=== PATIENT | male | born 1960 | race American Indian/Alaskan Native ===

== ENCOUNTER 2017-05-28 07:54 | Emergency (ER) | payer OTHER ==
[2017-05-28] MEDS ORDERED: ASPIRIN PO ONE (08:18)
[2017-05-28 09:34] LABS: Basophils % (Auto) 0.3 % (0.0-1.8); Eosinophils # (Auto) 0.1 K/mm3 (0.0-0.4); Eosinophils % (Auto) 0.9 % (0.0-4.3); Hematocrit 43.3 % (35.5-45.6); Hemoglobin 13.6 gm/dl (11.8-15.2); Lymphocytes # (Auto) 1.4 K/mm3 (1.2-5.4); Lymphocytes % (Auto) 21.6 % (13.4-35.0); Mean Corpuscular HGB Conc 32 % (32-34); Mean Corpuscular Hemoglobin 28 pg (28-32); Mean Corpuscular Volume 89 fl (84-94); Monocytes # (Auto) 0.6 K/mm3 (0.0-0.8); Monocytes % (Auto) 8.7 % (0.0-7.3); Platelet Count 281 K/mm3 (140-440); Red Blood Count 4.88 M/mm3 (3.65-5.03); Red Cell Distribution Width 14.3 % (13.2-15.2)
[2017-05-28 09:38] LABS: BUN/Creatinine Ratio TNR; Blood Urea Nitrogen TNR mg/dL (9-20); Calcium TNR mg/dL (8.4-10.2)
[2017-05-28 09:39] LABS: Hemolysis Index TNR
[2017-05-28] MEDS ORDERED: TYLENOL PO ONE (11:46)
--- NOTE | 2017-05-28 11:57 | XRay Report ---
ROUTINE CHEST, TWO VIEWS: HISTORY: chest pain. The trachea, heart, mediastinal contour, lung disla and bony thorax are unremarkable. IMPRESSION: Unremarkable chest x-ray.
[2017-05-28 12:00] LABS: BUN/Creatinine Ratio 17; Blood Urea Nitrogen 15 mg/dL (9-20); Calcium 8.8 mg/dL (8.4-10.2); Hemolysis Index 4
[2017-05-28] MEDS ORDERED: NORVASC PO ONE (12:32)
--- NOTE | 2017-05-28 13:19 | Emergency Department Report ---
ED Chest Pain HPI - General Chief Complaint: Chest Pain Stated Complaint: CP Time Seen by Provider: 05/28/17 11:28 Source: patient Mode of arrival: Ambulatory Limitations: No Limitations - History of Present Illness Initial Comments: 56-year-old male with no subcutaneous past medical history presents complaining of intermittent chest pain and left-sided neck pain since last night. Pain is Described as a pressure that he only feels it moving in certain positions. Pain is worse with bending forward and turning his head from [id number]. Patient's pain is rated 8/10 in intensity. Pain started last night and patient was able to go to sleep without any issues. He woke up this morning and pain worsened again while bending over to tie his shoe. He complains of some mild lightheadedness with walking but denies nausea, vomiting, diaphoresis, or shortness of breath. Severity scale (0 -10): 6 - Related Data Previous Rx's Medication Instructions Recorded Last Taken Type Ibuprofen [Motrin] 800 mg PO Q8HR PRN #30 tablet 05/28/17 Unknown Rx amLODIPine [Norvasc] 5 mg PO DAILY #30 tab 05/28/17 Unknown Rx Allergies Allergy/AdvReac Type Severity Reaction Status Date / Time No Known Allergies Allergy Unverified 05/28/17 08:14 Heart Score - HEART Score History: Slightly suspicious EKG: Non-specific Age: 45-65 Risk factors: 1-2 risk factors Troponin: < normal limit HEART Score: 3 ED Review of Systems ROS: Stated complaint: CP Other details as noted in HPI Comment: All other systems reviewed and negative Other: Constitutional: No fevers chills Eyes: No eye pain visual changes ENT: No ear pain or throat pain Neck: as per hpi Respiratory: Denies cough wheezing shortness of breath Cardiovascular: Denies palpitations, syncope GI: Denies abdominal pain, nausea, vomiting, diarrhea : Denies dysuria Musculoskeletal: Denies back pain Skin: Denies rash, lesions, erythema Neurologic: Denies headache, numbness, weakness Psychiatric: Denies suicidal ideation, hallucinations ED Past Medical Hx - Past Medical History Previous Medical History?: No - Surgical History Past Surgical History?: Yes Additional Surgical History: Hari hand surgery, Left foot surgery - Social History Smoking Status: Never Smoker Substance Use Type: Alcohol, Non Opiate Pain - Medications Home Medications: Home Medications Medication Instructions Recorded Confirmed Last Taken Type Ibuprofen [Motrin] 800 mg PO Q8HR PRN #30 tablet 05/28/17 Unknown Rx amLODIPine [Norvasc] 5 mg PO DAILY #30 tab 05/28/17 Unknown Rx ED Physical Exam - General Limitations: No Limitations - Other Other exam information: General: No limitations, patient is alert in no acute distress Head exam: Atraumatic, normocephalic Eyes exam: Normal appearance, pupils equal reactive to light, extraocular movements intact ENT: Moist mucous membrane, normal oropharynx Neck exam: Normal inspection, full range of motion, no meningismus, tenderness to left-sided neck base at insertion of trapezius muscle downward. Reproducible with head movement Respiratory exam: Clear to auscultation bilateral, no wheezes, rales, crackles. Chest wall nontender quadrant reproducible chest tenderness with leaning forward Cardiovascular: Normal rate and rhythm Abdomen: Soft, nondistended, and nontender, with normal bowel sounds, no rebound, or guarding Extremity: Full range of motion normal inspection no deformity, no calf tenderness or edema Back: Normal Inspection, full range of motion, no tenderness Neurologic: Alert, oriented x3, cranial nerves intact, no motor or sensory deficit Psychiatric: normal affect, normal mood Skin: Warm, dry, intact ED Course Vital Signs 05/28/17 05/28/17 08:14 11:37 Temperature 97.4 F L Pulse Rate 76 72 Respiratory 18 16 Rate Blood Pressure 185/115 Blood Pressure 135/106 [Left] O2 Sat by Pulse 97 96 Oximetry - Reevaluation(s) Reevaluation #1: 05/28/17 13:19 bp improved with bp meds but still elevated. asa and tylenol given in ed pain only with movement - Consultations Consultation #1: 05/28/17 lath hand with [facility] (community organization aide) Dr Albarado and Shilpa Delarosa came to evaluate pt. Agree pt can f/u tomorrow for outpt stress. rec norvasc for bp. Unfortunately there office does not accept the patient's insurance and therefore they discussed case with Dr. Elaine. Arrangements had been made for an appointment tomorrow with Dr. Elaine's office for outpatient stress testing. NAVEED score - Naveed Score Age > 65: (0) No Aspirin use within the Past 7 Days: (0) No 3 or more CAD Risk Factors: (0) No 2 or more Angina events in past 24 hrs: (1) Yes Known CAD with more than 50% Stenosis: (0) No Elevated Cardiac Markers: (0) No ST Deviation Greater than 0.5mm: (0) No NAVEED Score: 1 ED Medical Decision Making - Lab Data Result diagrams: 05/28/17 09:01 05/28/17 11:06 Lab Results 05/28/17 05/28/17 05/28/17 Range/Units 09:01 09:01 11:01 WBC 6.6 (4.5-11.0) K/mm3 RBC 4.88 (3.65-5.03) M/mm3 Hgb 13.6 (11.8-15.2) gm/dl Hct 43.3 (35.5-45.6) % MCV 89 (84-94) fl MCH 28 (28-32) pg MCHC 32 (32-34) % RDW 14.3 (13.2-15.2) % Plt Count 281 (140-440) K/mm3 Lymph % (Auto) 21.6 (13.4-35.0) % Gregory % (Auto) 8.7 H (0.0-7.3) % Eos % (Auto) 0.9 (0.0-4.3) % Baso % (Auto) 0.3 (0.0-1.8) % Lymph # 1.4 (1.2-5.4) K/mm3 Gregory # 0.6 (0.0-0.8) K/mm3 Eos # 0.1 (0.0-0.4) K/mm3 Baso # 0.0 (0.0-0.1) K/mm3 Seg Neutrophils % 68.5 (40.0-70.0) % Seg Neutrophils # 4.5 (1.8-7.7) K/mm3 Sodium TNR Potassium TNR Chloride TNR Carbon Dioxide TNR Anion Gap TNR BUN TNR Creatinine TNR Estimated GFR > 60 ml/min BUN/Creatinine Ratio TNR Glucose TNR Calcium TNR Troponin T < 0.010 < 0.010 (0.00-0.029) ng/mL 05/28/17 Range/Units 11:06 WBC (4.5-11.0) K/mm3 RBC (3.65-5.03) M/mm3 Hgb (11.8-15.2) gm/dl Hct (35.5-45.6) % MCV (84-94) fl MCH (28-32) pg MCHC (32-34) % RDW (13.2-15.2) % Plt Count (140-440) K/mm3 Lymph % (Auto) (13.4-35.0) % Gregory % (Auto) (0.0-7.3) % Eos % (Auto) (0.0-4.3) % Baso % (Auto) (0.0-1.8) % Lymph # (1.2-5.4) K/mm3 Gregory # (0.0-0.8) K/mm3 Eos # (0.0-0.4) K/mm3 Baso # (0.0-0.1) K/mm3 Seg Neutrophils % (40.0-70.0) % Seg Neutrophils # (1.8-7.7) K/mm3 Sodium 138 Potassium 4.9 Chloride 99.6 Carbon Dioxide 26 Anion Gap 17 BUN 15 Creatinine 0.9 Estimated GFR > 60 ml/min BUN/Creatinine Ratio 17 Glucose 94 Calcium 8.8 Troponin T (0.00-0.029) ng/mL - EKG Data -: EKG Interpreted by Me (early r wave progression) EKG shows normal: sinus rhythm, axis (qrs 10), QRS complexes (104), ST-T waves ( no stemi/t inver) Rate: normal (69) - EKG Data 05/28/17 13:25 repeat ekg in ed unchanged - Radiology Data Radiology results: report reviewed ( ) cxr: unremarkable - Medical Decision Making cp since last night cardiac enzymes neg x 2 EKG unremarkable x 2 likely msk pain: pain meds to be prescribed New onset htn: norvasc will be started Scheduled for outpt stress test tomorrow am with Dr elaine. - Differential Diagnosis AK, MSK pain, hypertensive emergency, unstable angina Critical Care Time: No Critical care attestation.: If time is entered above; I have spent that time in minutes in the direct care of this critically ill patient, excluding procedure time. ED Disposition Clinical Impression: Atypical chest pain, Neck muscle strain, HTN (hypertension) Disposition: TO HOME OR SELFCARE Is pt being admited?: No Does the pt Need Aspirin: No Condition: Stable Instructions: Chest Pain (ED), Cervical Sprain (ED), Hypertension (ED) Additional Instructions: Take the medicine as prescribed. Follow up with the lath hand tomorrow as scheduled. Return if symptoms worsen. Prescriptions: amLODIPine [Norvasc] 5 mg PO DAILY #30 tab Ibuprofen [Motrin] 800 mg PO Q8HR PRN #30 tablet PRN Reason: Pain Referrals: TANG ELAINE MD [Staff Physician] - 05/29/17 9:00 am (alternative phone number [phone]) Time of Disposition: 13:24
--- NOTE | 2017-05-28 13:26 | Consultation ---
History of Present Illness Consult date: 05/28/17 Requesting physician: JOSAFAT CHAVARRIA Consult reason: chest pain History of present illness: Pt is a 56 YO male with no known past medical history. He is previously unknown to our practice. He presented with complaints of chest pain since yesterday evening. He describes the chest pain as an intermittent, nonexertional, midsternal pressure which is only present with movement, specifically bending over. Additionally, he complaints of left sided neck soreness which sometimes radiates down into his chest. He also experienced some dizziness this AM while bending over to tie up his work boots. On arrival to ED, pt's BP was noted to be 185/115. Pt denies any known history of hypertension, although he admits that he has not seen a PCP in the last year. EKG reveals no acute ischemic changes, CXR with NAF, troponins negative for AMI x 2 sets. On evaluation, pt reports dizziness has resolved and he denies any chest pain while sitting upright at rest. He denies any SOB, palpitations, n/v, diaphoresis or syncope. He denies any prior cardiac issues or cardiac evaluation. He denies any known family history of heart disease. 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 He reports that he runs and exercises regularly and has not experienced any difficulty with exertion recently. Past History Past Medical History: No medical history Social history: , lives with family. denies: smoking, alcohol abuse, prescription drug abuse Family history: no significant family history Medications and Allergies Allergies Allergy/AdvReac Type Severity Reaction Status Date / Time No Known Allergies Allergy Unverified 05/28/17 08:14 Home Medications Medication Instructions Recorded Confirmed Last Taken Type Ibuprofen [Motrin] 800 mg PO Q8HR PRN #30 tablet 05/28/17 Unknown Rx amLODIPine [Norvasc] 5 mg PO DAILY #30 tab 05/28/17 Unknown Rx Review of Systems Constitutional: no weight loss, no weight gain, no fever, no chills, no sweats Ears, nose, mouth and throat: no ear pain, no nose pain, no sinus pressure, no sinus pain Cardiovascular: chest pain, lightheadedness, no orthopnea, no palpitations, no rapid/irregular heart beat, no edema, no syncope, no shortness of breath, no dyspnea on exertion, no paroxysmal nocturnal dyspnea, no leg edema, no decreased exercise tolerance Respiratory: no cough, no shortness of breath, no dyspnea on exertion, no congestion, no wheezing, no pain on inspiration Gastrointestinal: no abdominal pain, no nausea, no vomiting, no diarrhea, no constipation, no change in bowel habits Genitourinary Male: no dysuria, no hematuria, no flank pain, no discharge, no urinary frequency, no urinary hesitancy Musculoskeletal: neck pain (left-sided ), no neck stiffness, no arm numbness/ tingling, no low back pain, no shooting leg pain, no leg numbness/tingling, no redness of joints, no limitation of motion, no gait dysfunction Integumentary: no rash, no pruritis, no redness, no sores, no wounds Neurological: no head injury, no paralysis, no weakness, no parathesias, no numbness, no tingling, no seizures, no syncope Psychiatric: no anxiety, no sleep disturbances Endocrine: no cold intolerance, no heat intolerance Hematologic/Lymphatic: no easy bruising, no easy bleeding, no lymphadenopathy Allergic/Immunologic: no urticaria, no wheezing, no persistent infections Physical Examination Last Vital Signs Temp 97.4 F L 05/28/17 08:14 Pulse 71 05/28/17 13:34 Resp 16 05/28/17 11:37 BP 141/106 05/28/17 13:34 Pulse Ox 96 05/28/17 11:37 General appearance: no acute distress HEENT: Positive: PERRL, Normocephaly, Mucus Membranes Moist Neck: Positive: neck supple, trachea midline Cardiac: Positive: Reg Rate and Rhythm, S1/S2 Lungs: Positive: clear to auscultation Neuro: Positive: Grossly Intact, Cranial Nerve 2-12 Intact Abdomen: Positive: Soft, Active Bowel Sounds. Negative: Tender Skin: Positive: Clear. Negative: Rash, Wound Musculoskeletal: No Fluid Collection, No Pain, Normal Range of Motion Extremities: Absent: edema Results 05/28/17 09:01 05/28/17 11:06 CBC 05/28/17 Range/Units 09:01 WBC 6.6 (4.5-11.0) K/mm3 RBC 4.88 (3.65-5.03) M/mm3 Hgb 13.6 (11.8-15.2) gm/dl Hct 43.3 (35.5-45.6) % Plt Count 281 (140-440) K/mm3 Lymph # 1.4 (1.2-5.4) K/mm3 Coffee # 0.6 (0.0-0.8) K/mm3 Eos # 0.1 (0.0-0.4) K/mm3 Baso # 0.0 (0.0-0.1) K/mm3 Comprehensive Metabolic Panel 05/28/17 05/28/17 Range/Units 09:01 11:06 Sodium TNR 138 Potassium TNR 4.9 Chloride TNR 99.6 Carbon Dioxide TNR 26 BUN TNR 15 Creatinine TNR 0.9 Glucose TNR 94 Calcium TNR 8.8 - Imaging and Cardiology EKG: report reviewed, image reviewed EKG interpretations - Telemetry EKG Rhythm: Sinus Rhythm - EKG Sinus rhythms and dysrhythmias: sinus rhythm Assessment and Plan Assessment: Chest pain, atypical - ECG with NAF; Leti negative for AMI. Uncontrolled HTN Plan: Currently stable cardiac status. Optimize anti-hypertensive regimen - recommend norvasc 5mg daily. Given atypical nature of chest pain, negative cardiac enzymes and EKG with no acute ischemic changes, pt may discharge home today from cardiology standpoint pending BPs normalize. Recommend pt to follow up for OP cardiac stress testing in the near future. Pt to follow up tomorrow AM with [facility] as our office does not accept insurance. D/w Dr. Harp. Assessment and plan of care reviewed with pt and pt's at bedside. The patient has been seen in conjunction with Dr. Albarado who agrees with the assessment and plan of care.
[2017-05-28 13:35] VITALS: BP 141/106
== END 2017-05-28 13:38 | disposition home or self-care (01) ==
LOC: ED 07:54
DX: S16.1XXA Strain of muscle, fascia and tendon at neck level, initial encounter (principal); R07.89 Other chest pain; I10 Essential (primary) hypertension; X58.XXXA Exposure to other specified factors, initial encounter; Y93.89 Activity, other specified; Y92.89 Other specified places as the place of occurrence of the external cause; Y99.8 Other external cause status
CPT/HCPCS: 36415; 71020; 80048; 84484; 85025; 93005; 93010; 99284

== ENCOUNTER 2018-10-20 07:01 | Emergency (ER) | payer OTHER ==
[2018-10-20 07:09] VITALS: BP 138/104
--- NOTE | 2018-10-20 09:03 | Emergency Department Report ---
ED Fall HPI - General Chief Complaint: Pain General Stated Complaint: RIB PAIN Time Seen by Provider: 10/20/18 08:57 Source: patient Mode of arrival: Ambulatory - History of Present Illness Initial Comments: 58 y/o male comes in for fall that occurred to Thursday while cleaning his boat. Patient reports that he has left rib pain worst with deep breath and certain movements. Denies any SOB, no PMH, no Meds and NKDA. 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 Fall Occurred: home Loss of Consciousness: none Prolonged Down Time?: no Symptoms Prior to Fall: none Location: chest (left rib cage) Severity scale (0 -10): 4 Quality: sharp Associated Symptoms: denies - Related Data Previous Rx's Medication Instructions Recorded Last Taken Type amLODIPine [Norvasc] 5 mg PO DAILY #30 tab 05/28/17 Unknown Rx Ibuprofen [Motrin 800 MG tab] 800 mg PO Q8HR PRN #30 tablet 10/20/18 Unknown Rx Allergies Allergy/AdvReac Type Severity Reaction Status Date / Time No Known Allergies Allergy Unverified 05/28/17 08:14 ED Review of Systems ROS: Stated complaint: RIB PAIN Other details as noted in HPI Comment: All other systems reviewed and negative Cardiovascular: other (left rib pain) ED Past Medical Hx - Past Medical History Previous Medical History?: No - Surgical History Past Surgical History?: Yes Additional Surgical History: Hari hand surgery, Left foot surgery - Social History Smoking Status: Never Smoker Substance Use Type: None - Medications Home Medications: Home Medications Medication Instructions Recorded Confirmed Last Taken Type amLODIPine [Norvasc] 5 mg PO DAILY #30 tab 05/28/17 Unknown Rx Ibuprofen [Motrin 800 MG tab] 800 mg PO Q8HR PRN #30 tablet 10/20/18 Unknown Rx ED Physical Exam - General Limitations: No Limitations General appearance: alert, in no apparent distress - Head Head exam: Present: atraumatic, normocephalic - Eye Eye exam: Present: normal appearance - ENT ENT exam: Present: mucous membranes moist - Respiratory Respiratory exam: Absent: chest wall tenderness - Cardiovascular Cardiovascular Exam: Present: regular rate, normal rhythm. Absent: systolic murmur, diastolic murmur, rubs, gallop - Neurological Exam Neurological exam: Present: alert, oriented X3 - Psychiatric Psychiatric exam: Present: normal affect, normal mood - Skin Skin exam: Present: warm, dry, intact, normal color. Absent: rash ED Course Vital Signs 10/20/18 07:06 Temperature 97.9 F Pulse Rate 77 Respiratory 16 Rate Blood Pressure 138/104 O2 Sat by Pulse 99 Oximetry ED Medical Decision Making - Radiology Data Radiology results: report reviewed Patient: HARSHA MORALES MR#: [id number] 0 : 1960 Acct:[id number] Age/Sex: 58 / M ADM Date: 10/20/18 Loc: ED Attending Dr: Ordering Physician: JAVIER DRIVER Date of Service: 10/20/18 Procedure(s): XR ribs UNI w PA chest 3+V LT Accession Number(s): [id number] cc: JAVIER DRIVER Fluoro Time In Minutes: PROCEDURE: XR RIBS UNI W PA CHEST 3+V LT TECHNIQUE: Left rib radiographs, 5 views of the ribs, including PA chest. HISTORY: trauma to left chest from fall COMPARISONS: Chest x-ray May 28, 2017. Cysts FINDINGS: Cardiac silhouette is within normal limits. There is no effusion. There is no pneumothorax. There is no consolidation. Left posterior lateral 7th-9th rib fractures are nondisplaced. There are no suspicious osseous lesions. IMPRESSION: * Left rib fractures. This document is electronically signed by Cyrus Steinberg MD., Oct 20 2018 09:47:41 AM ET Transcribed By: TYM Dictated By: CYRUS STEINBERG MD Electronically Authenticated By: CYRUS STEINBERG MD Signed Date/Time: 10/20/1849 DD/ 1 TD/TT: 10/20/18931 - Medical Decision Making 58 y/o male with left rib pain. Xray chest and left rib series has been ordered. Declines pain medications at this time. X-ray shows left rib 7-9 non displaced fractures. Take ibuprofen as prescribed use incentive spirometry 10 time per hour. follow up with you Primary care provider in 3-5 day if you have any further concerns. Please refrain from using you body [place] for the next 4 weeks to prevent breathing restrictions. Than will help prevent you from have a collapse lung which can lead to pneumonia. Critical care attestation.: If time is entered above; I have spent that time in minutes in the direct care of this critically ill patient, excluding procedure time. ED Disposition Clinical Impression: Ribs, multiple fractures Qualifiers: Encounter type: initial encounter Fracture type: closed Laterality: left Qualified Code(s): S22.42XA - Multiple fractures of ribs, left side, initial encounter for closed fracture Disposition: - TO HOME OR SELFCARE Is pt being admited?: No Does the pt Need Aspirin: No Condition: Stable Instructions: Rib Fracture (ED) Additional Instructions: Take ibuprofen as prescribed use incentive spirometry 10 time per hour. follow up with you Primary care provider in 3-5 day if you have any further concerns. Please refrain from using you body [place] for the next 4 weeks to prevent breathing restrictions. Than will help prevent you from have a collapse lung which can lead to pneumonia. Prescriptions: Ibuprofen [Motrin 800 MG tab] 800 mg PO Q8HR PRN #30 tablet PRN Reason: Pain Referrals: [facility] [Other] - 3-5 Days Forms: Work/School Release Form(ED)
--- NOTE | 2018-10-20 09:49 | XRay Report ---
PROCEDURE: XR RIBS UNI W PA CHEST 3+V LT TECHNIQUE: Left rib radiographs, 5 views of the ribs, including PA chest. HISTORY: trauma to left chest from fall COMPARISONS: Chest x-ray May 28, 2017. Cysts FINDINGS: Cardiac silhouette is within normal limits. There is no effusion. There is no pneumothorax. There is no consolidation. Left posterior lateral 7th-9th rib fractures are nondisplaced. There are no suspicious osseous lesions. IMPRESSION: * Left rib fractures. This document is electronically signed by Cyrus Greer MD., Oct 20 2018 09:47:41 AM ET
== END 2018-10-20 10:32 | disposition home or self-care (01) ==
LOC: ED 07:01
DX: S22.42XA Multiple fractures of ribs, left side, initial encounter for closed fracture (principal); W18.30XA Fall on same level, unspecified, initial encounter; Y93.H9 Activity, other involving exterior property and land maintenance, building and construction; Y92.814 Boat as the place of occurrence of the external cause; Y99.8 Other external cause status
CPT/HCPCS: 99283